=== PATIENT | female | born 1965 | race Caucasian/White ===

== ENCOUNTER 2021-05-25 08:13 | Outpatient (CLI) | payer OTHER, SELFPAY ==
[2021-05-25 08:39] LABS: Basophils Percent Auto 0.4 % (0.2-1.2); Eosinophils Absolute Auto 0.4 K/mm3 (0-0.3); Eosinophils Percent Auto 3.8 % (0-4.4); Hematocrit 41.6 % (37.0-47.0); Hemoglobin 13.3 g/dL (12.0-15.0); Immature Granulocyte Absolute 0.03 K/mm3 (0.00-0.031); Immature Granulocyte Percent A 0.3 % (0-0.5); Lymphocytes Absolute Auto 1.87 K/mm3 (0.9-3.2); Lymphocytes Percent Auto 19.2 % (18.3-44.2); Mean Corpuscular Hemoglobin 28.4 pg (26-34); Mean Corpuscular Volume 88.7 fl (80-100); Mean Platelet Volume 9.5 fl (7.4-10.4); Monocytes Absolute Auto 0.4 K/mm3 (0.1-0.6); Monocytes Percent Auto 4.3 % (2.6-8.5); Platelet Count Result 278 k/mm3 (150-375); Red Blood Count 4.69 M/mm3 (4.2-5.4); Red Cell Distribution Width 14.2 % (11.5-14.5); White Blood Count 9.7 K/mm3 (4.5-10.0)
[2021-05-25 08:54] LABS: Alanine Aminotransferase 25 U/L (4-35); Albumin Level 4.6 g/dL (3.5-5.1); Alkaline Phosphatase 55 U/L (38-126); Anion Gap 6 mmol/L (8-16); Aspartate Amino Transferase 30 U/L (14-36); Bilirubin,Total 0.4 mg/dL (0.2-1.3); Blood Urea Nitrogen 17 mg/dL (7-17); Calcium 8.8 mg/dL (8.4-10.2); Carbon Dioxide 31 mmol/L (22-30); Chloride 101 mmol/L (98-107); Cholesterol 191 mg/dL (0-200); Estimated Glomerular Filt Rate > 60; Glucose 125 mg/dL (65-110); HDL Direct 50 mg/dL; Potassium 4.9 mmol/L (3.4-5.0); Sodium 138 mmol/L (137-145); Triglycerides 144 mg/dL (<150)
[2021-05-25 09:03] LABS: Hemoglobin A1C 6.4 % (<5.7)
[2021-05-25 09:05] LABS: LDL Cholesterol Direct 124 mg/dL
[2021-05-25 09:49] LABS: Vitamin D 25 Hydroxy 38.1 ng/mL
== END 2021-05-25 08:14 | disposition home or self-care (01) ==
PROVIDERS: PCP Family Medicine; Referring Provider Nurse Practitioner Family; Visit Provider Family Medicine
DX: E55.9 Vitamin D deficiency, unspecified (principal); E11.9 Type 2 diabetes mellitus without complications; R53.83 Other fatigue; R42 Dizziness and giddiness
CPT/HCPCS: 36415; 80053; 80061; 82306; 83036; 84443; 85025

== ENCOUNTER 2021-06-17 14:50 | Outpatient (RCR) | payer OTHER, SELFPAY ==
--- NOTE | 2021-06-17 16:33 | PTOPEVAL ---
PHYSICAL THERAPY EVALUATION Thank you for referring Jacque Purvis to [facility].? Jacque was evaluated for the dx of BPPV. The patient is scheduled to be seen prn for up to a month if symptoms of dizziness return. Please review, sign, date and return this plan of care BENIGNO. I agree with and certify that the following plan of care is medically necessary. Referring Physician Date Attending Provider: NIDIA AaronPT Outpatient Evaluation Start: 06/17/21 15:04 Freq: Status: Active Protocol: Document 06/17/21 15:05 MLV (Rec: 06/17/21 16:10 MLV [id number]) Therapy Assessment Status Assessment Status Assessment Status Evaluation Evaluation Information Problem Diagnosis BPPV Onset February 2021 Cause no injury Additional Evaluation Detail The patient reports having 3 bouts of vertigo since February. The patient became nauseated and had bowel responses. The symptoms were severe and lasted 8 hours, leaving her bedridden at that time. The patient has not had an event for 4-6 weeks now and wonders if she needs the therapy. The patient has had small events of vertigo over the last 20 years and had been treated with BPPV exercises that worked then. Pain Assessment Timing of Pain Assessment Timing of Pain Assessment Assessment Self Report Self Report Pain Level 0 Pain Score Pain Score 0: Self Report Cervical and Lumbar ROM Cervical ROM Cervical ROM WNL Upper Extremity Range of Motion General Upper Extremity Range of Motion Reason Not Measured WFL/Left,WFL/Right Upper Extremity Muscle Strength Testing General Upper Extremity Strength Reason Not Measured WFL/Left,WFL/Right Special Test-Spine Cervical Spine Special Tests Vertebral Artery Test Negative Right,Negative Left Gait Assessment Gait Pattern Assessment Other Gait Observations mild ataxia related to DM neuropathy at LE's but I w/o a device with all normal activities. Vestibular Evaluation Vestibular Medical Information Past Vestibular History Back Pain,Medication Changes, Sinus/Allergy Issues Medical History Comments had stopped taking her zyrtec prior to onset of dizzy events . Started taking zyrtec aga
--- NOTE | 2021-07-04 13:58 | PCPTNOTE ---
PT called pt to check on vestibular symptoms-pt reports no dizziness but not doing much activity due to having COVID now. Plan to call pt in one week to check in on her again.
--- NOTE | 2021-07-11 13:05 | PCPTNOTE ---
Attempted to contact pt to check on status. pt unavailable. Left message.
--- NOTE | 2021-07-18 16:34 | PCPTNOTE ---
PHYSICAL THERAPY DISCHARGE Attending Provider: NIDIA Aaron Patient:Jacque Purvis Date of :1965 Patient has not returned for any further treatments since 06/17/2021, the patient has not called due to a return of symptoms, therefore she will be discharged at this time. Patient?s initial visit was on 06/17/2021 15:00 and she had a total of 1 visit. The goals have been met. Thank you for referring this patient to [facility]. Please review, sign, date and return this discharge summary BENIGNO. I have been updated about the patient's current status and I agree with discharge from the above service at this time. Referring Physician Date
== END 2021-09-01 11:42 | disposition home or self-care (01) ==
LOC: ANHPT 14:50
PROVIDERS: PCP Family Medicine; Visit Provider Nurse Practitioner Family
DX: R26.89 Other abnormalities of gait and mobility (principal); G43.809 Other migraine, not intractable, without status migrainosus; H81.09 Meniere's disease, unspecified ear; H91.92 Unspecified hearing loss, left ear; E11.40 Type 2 diabetes mellitus with diabetic neuropathy, unspecified
CPT/HCPCS: 97162

== ENCOUNTER 2021-06-24 14:22 | Outpatient (CLI) | payer OTHER, SELFPAY | END 2021-06-24 14:23 | disposition home or self-care (01) | LOC: ANHBWCAUD 14:24 | PROVIDERS: PCP Family Medicine; Visit Provider Otolaryngology | DX: G43.809 Other migraine, not intractable, without status migrainosus (principal); H81.09 Meniere's disease, unspecified ear; R26.89 Other abnormalities of gait and mobility; E11.40 Type 2 diabetes mellitus with diabetic neuropathy, unspecified; H90.A21 Sensorineural hearing loss, unilateral, right ear, with restricted hearing on the contralateral side; H90.A32 Mixed conductive and sensorineural hearing loss, unilateral, left ear with restricted hearing on the contralateral side | CPT/HCPCS: 92557; 92567 ==

== ENCOUNTER 2021-07-01 10:18 | Outpatient (RCR) | payer OTHER, SELFPAY | END 2021-07-19 09:31 | disposition home or self-care (01) | LOC: ANHBWCAUD 10:18 | PROVIDERS: PCP Nurse Practitioner Family; Visit Provider Otolaryngology | DX: Z46.1 Encounter for fitting and adjustment of hearing aid (principal) | CPT/HCPCS: 92593 ==

== ENCOUNTER 2021-11-11 07:15 | Outpatient (CLI) | payer BC, SELFPAY ==
[2021-11-11 08:00] LABS: Hemoglobin A1C 6.4 % (<5.7)
[2021-11-11 08:02] LABS: Alanine Aminotransferase 21 U/L (4-35); Albumin Level 4.4 g/dL (3.5-5.1); Alkaline Phosphatase 64 U/L (38-126); Anion Gap 6 mmol/L (8-16); Aspartate Amino Transferase 22 U/L (14-36); Bilirubin,Total 0.2 mg/dL (0.2-1.3); Blood Urea Nitrogen 19 mg/dL (7-17); Carbon Dioxide 29 mmol/L (22-30); Chloride 104 mmol/L (98-107); Estimated Glomerular Filt Rate > 60; Glucose 135 mg/dL (65-110); Potassium 4.3 mmol/L (3.4-5.0); Sodium 139 mmol/L (137-145)
[2021-11-11 08:06] LABS: Add Urine Microscopic? YES; Appearance Urine Clear (Clear); Bilirubin Urine Negative (Negative); Blood Urine Negative (Negative); Color Urine Yellow (Yellow); Glucose Urine UA Negative (Negative); Ketones Urine Trace mg/dL (Negative); Leukocyte Esterase Ur Negative LEU/UL (NEGATIVE); Mucus Urine Rare /lpf; Nitrate Urine Negative (Negative); Protein Urine Negative (Negative); RBC Urine 0-2 /hpf (0-2); Specific Grav Ur 1.013 (1.001-1.035); Squamous Epithelial Cell Urine Rare /hpf (Few); Urobilinogen Urine Negative mg/dL (<2.0); WBC Urine 0-3 /hpf (0-3)
== END 2021-11-11 07:16 | disposition home or self-care (01) ==
LOC: ANHLAB 07:16
PROVIDERS: PCP Family Medicine; Visit Provider Physician Assistant
DX: E11.40 Type 2 diabetes mellitus with diabetic neuropathy, unspecified (principal); R32 Unspecified urinary incontinence
CPT/HCPCS: 36415; 80053; 81001; 83036; 87086

== ENCOUNTER 2022-09-01 00:37 | Day surgery (SDC) | payer OTHER, SELFPAY ==
[2022-08-22 10:10] VITALS: BMI 49.2
[2022-09-01 09:06] VITALS: BP 162/76; PULSE 63; RESP 17; O2SAT 98; BMI 48.1
[2022-09-01] MEDS: LACTATED RINGERS 1,000 ML 150 ML IV CONT (09:17)
[2022-09-01 09:20] LABS: Glucose Point of Care 118 mg/dl (65-105)
--- NOTE | 2022-09-01 09:37 | PM.HPGS ---
History of Present Illness History of Present Illness Consent: Risks, benefits, and alternatives have been discussed and questions answered. Patient agrees to proceed with procedure. 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 She subsequently underwent ablation at [facility] and on her last endoscopy 2 years ago there Apparently was no visible evidence of residual Salazar's. Review of Systems Review of Systems: All systems reviewed & are unremarkable except as noted in HPI and below PMFSH Past Medical History Medical History Anxiety Barretts esophagus Controlled diabetes mellitus Diabetes mellitus with neuropathy Fibromyalgia GERD (gastroesophageal reflux disease) Insomnia Lumbar radiculopathy Obesity ALECIA (obstructive sleep apnea) Postmenopausal HRT (hormone replacement therapy) Surgical History Surgical History H/O gastric bypass History of ankle surgery History of carpal tunnel release of both wrists History of cholecystectomy History of reduction mammoplasty History of tubal ligation Family History Family History Mother Breast cancer Sibling Hypertension Social History Social History Smoking packs per day: 1 Smoking cigarettes per day: 20.0 Years smoked: 31 Smoking pack-years: 31.00 Smoking status: Former smoker Tobacco type: cigarettes Second hand tobacco smoke exposure: No Alcohol intake: current Substance use: never Substance use type: marijuana and prescription drug Gender identity (if verbalized by the patient): Female Sexual Orientation (if Verbalized by the Patient): Straight or Heterosexual Meds Home Medications and Allergies Home Medications Medication Instructions Recorded Confirmed Type cetirizine 10 mg tablet (Zyrtec) 10 mg PO DAILY PRN Allergy Symptoms 04/28/21 09/01/22 History cholecalciferol (vitamin D3) 50 50 mcg PO DAILY 04/28/21 09/01/22 History mcg (2,000 unit) capsule ondansetron HCl 4 mg tablet 4 mg PO Q6H PRN nausea and 05/23/21 09/01/22 Rx (Zofran) vomiting #30 tabs lorazepam 0.5 mg tablet (Ativan) 0.5 mg PO DAILY PRN anxiety #30 03/13/22 09/01/22 Rx tabs methocarbamol 500 mg tablet 500 mg PO QID PRN muscle spasm 30 04/24/22 09/01/22 Rx days #120 tabs diclofenac sodium 75 mg 75 mg PO BID #180 tabs 08/18/22 09/01/22 Rx tablet,delayed release dulaglutide 0.75 mg/0.5 mL 0.75 mg (0.5 mL) subcut WEEKLY #6 08/18/22 09/01/22 Rx subcutaneous pen injector mL (Trulicity) duloxetine 60 mg capsule,delayed 60 mg PO BID #180 caps 08/18/22 09/01/22 Rx release famotidine 40 mg tablet 40 mg PO QHS #90 tabs 08/18/22 09/01/22 Rx metformin 500 mg tablet 500 mg PO BID #180 tabs 08/18/22 09/01/22 Rx methylphenidate HCl 10 mg tablet 10 mg PO DAILY PRN ADHD in the 08/18/22 09/01/22 Rx afternoon #90 tabs methylphenidate HCl 18 mg 18 mg PO QAM #90 tabs 08/18/22 09/01/22 Rx tablet,extended release 24 hr (Concerta) omeprazole 40 mg capsule,delayed 40 mg PO DAILY #90 caps 08/18/22 09/01/22 Rx release pregabalin 150 mg capsule 150 mg PO BID #180 caps 08/18/22 09/01/22 Rx sertraline 100 mg tablet 100 mg PO DAILY #90 tabs 08/18/22 09/01/22 Rx sertraline 50 mg tablet 50 mg PO DAILY #90 tabs 08/18/22 09/01/22 Rx trazodone 100 mg tablet 100 mg PO QHS #90 tabs 08/18/22 09/01/22 Rx Allergies Allergy/AdvReac Type Severity Reaction Status Date / Time baclofen Allergy Mild Unknown Verified 09/01/22 09:05 cyclobenzaprine Allergy Mild Unknown Verified 09/01/22 09:05 [From Flexeril] metronidazole [From Flagyl] Allergy Mild Hives Verified 09/01/22 09:05 Vital Signs Vital Signs - 24 hr 0
--- NOTE | 2022-09-01 09:44 | WPDANESEPPF ---
Anes - Initial Pre Proc Eval Procedure: Operation Date: 09/01/22 10:30 Proposed Procedures p Esophagogastroduodenoscopy - Shaan Mirza MD Date/Time: 09/01/22 09:44 Surgeon: Shaan Mirza MD Pre Op Diagnosis: GERD, Salazar's Esophagus Patient Data Age: 56 Gender: F Height: 1.55 m Weight: 115.5 kg Last Vital Signs Pulse 63 09/01/22 09:06 Resp 17 09/01/22 09:06 BP 162/76 H 09/01/22 09:06 Pulse Ox 98 09/01/22 09:06 O2 Del Method Room Air 09/01/22 09:06 Allergies Allergy/AdvReac Type Severity Reaction Status Date / Time baclofen Allergy Mild Unknown Verified 09/01/22 09:05 cyclobenzaprine Allergy Mild Unknown Verified 09/01/22 09:05 [From Flexeril] metronidazole [From Flagyl] Allergy Mild Hives Verified 09/01/22 09:05 Home Medications Medication Instructions Recorded Confirmed Type cetirizine 10 mg tablet (Zyrtec) 10 mg PO DAILY PRN Allergy Symptoms 04/28/21 09/01/22 History cholecalciferol (vitamin D3) 50 50 mcg PO DAILY 04/28/21 09/01/22 History mcg (2,000 unit) capsule ondansetron HCl 4 mg tablet 4 mg PO Q6H PRN nausea and 05/23/21 09/01/22 Rx (Zofran) vomiting #30 tabs lorazepam 0.5 mg tablet (Ativan) 0.5 mg PO DAILY PRN anxiety #30 03/13/22 09/01/22 Rx tabs methocarbamol 500 mg tablet 500 mg PO QID PRN muscle spasm 30 04/24/22 09/01/22 Rx days #120 tabs diclofenac sodium 75 mg 75 mg PO BID #180 tabs 08/18/22 09/01/22 Rx tablet,delayed release dulaglutide 0.75 mg/0.5 mL 0.75 mg (0.5 mL) subcut WEEKLY #6 08/18/22 09/01/22 Rx subcutaneous pen injector mL (Trulicity) duloxetine 60 mg capsule,delayed 60 mg PO BID #180 caps 08/18/22 09/01/22 Rx release famotidine 40 mg tablet 40 mg PO QHS #90 tabs 08/18/22 09/01/22 Rx metformin 500 mg tablet 500 mg PO BID #180 tabs 08/18/22 09/01/22 Rx methylphenidate HCl 10 mg tablet 10 mg PO DAILY PRN ADHD in the 08/18/22 09/01/22 Rx afternoon #90 tabs methylphenidate HCl 18 mg 18 mg PO QAM #90 tabs 08/18/22 09/01/22 Rx tablet,extended release 24 hr (Concerta) omeprazole 40 mg capsule,delayed 40 mg PO DAILY #90 caps 08/18/22 09/01/22 Rx release pregabalin 150 mg capsule 150 mg PO BID #180 caps 08/18/22 09/01/22 Rx sertraline 100 mg tablet 100 mg PO DAILY #90 tabs 08/18/22 09/01/22 Rx sertraline 50 mg tablet 50 mg PO DAILY #90 tabs 08/18/22 09/01/22 Rx trazodone 100 mg tablet 100 mg PO QHS #90 tabs 08/18/22 09/01/22 Rx Laboratory Tests 09/01/22 09:12 POC Capillary Glucose 118 mg/dl H mg/dl (65-105) Patient hx anesthesia problems: none Family hx anesthesia problems: none Results Review: All pre-operative results and documents have been reviewed as part of the pre-operative evaluation. [facility] Past Medical History Medical History Anxiety Barretts esophagus Controlled diabetes mellitus Diabetes mellitus with neuropathy Fibromyalgia GERD (gastroesophageal reflux disease) Insomnia Lumbar radiculopathy Obesity ALECIA (obstructive sleep apnea) Postmenopausal HRT (hormone replacement therapy) Surgical History Surgical History H/O gastric bypass History of ankle surgery History of carpal tunnel release of both wrists History of cholecystectomy History of reduction mammoplasty History of tubal ligation Family History Family History Mother Breast cancer Sibling Hypertension Social History Social History Smoking packs per day: 1 Smoking cigarettes per day: 20.0 Years smoked: 31 Smoking pack-years: 31.00 Smoking status: Former smoker Tobacco type: cigarettes Second hand tobacco smoke exposure: No Alcohol intake: current Substance use: never Substance use type: marijuana and prescription drug Gender identity (if verbalized by the patient): F
[2022-09-01] MEDS: BENZOCAINE (*SP) 60 ML SPRAY CAN (HURRICAINE) 1 SPRAY MUCOUS MEM (10:22)
[2022-09-01 10:30] VITALS: BP 108/56; PULSE 58; RESP 16; O2SAT 93
[2022-09-01 10:40] VITALS: BP 113/57; PULSE 59; RESP 20; O2SAT 96
[2022-09-01 10:50] VITALS: BP 127/54; PULSE 58; RESP 18; O2SAT 100
== END 2022-09-01 11:00 | disposition home or self-care (01) ==
PROVIDERS: PCP Family Medicine; Visit Provider Internal Medicine Gastroenterology
PROC: 0DJ08ZZ Inspection of Upper Intestinal Tract, Via Natural or Artificial Opening Endoscopic (ICD-10-PCS; CPT 43235; principal; 2022-09-01 10:30)
DX: Z09 Encounter for follow-up examination after completed treatment for conditions other than malignant neoplasm (principal); K21.9 Gastro-esophageal reflux disease without esophagitis; Z87.19 Personal history of other diseases of the digestive system; Z98.84 Bariatric surgery status; E11.40 Type 2 diabetes mellitus with diabetic neuropathy, unspecified; G47.33 Obstructive sleep apnea (adult) (pediatric); M79.7 Fibromyalgia; F41.9 Anxiety disorder, unspecified; E66.01 Morbid (severe) obesity due to excess calories; Z68.42 Body mass index [BMI] 45.0-49.9, adult; Z79.890 Hormone replacement therapy; Z87.891 Personal history of nicotine dependence; Z79.899 Other long term (current) drug therapy; Z79.84 Long term (current) use of oral hypoglycemic drugs
CPT/HCPCS: 43235; 82948; 88305; J2704; J7120

== ENCOUNTER 2022-11-08 17:17 | Outpatient (CLI) | payer OTHER, SELFPAY ==
--- NOTE | ~2022-11-08 | XR_ITS ---
AP view of the pelvis and AP and lateral views of the bilateral hips Clinical history: Pain Findings: No acute fracture or dislocation is seen. Osseous alignment is anatomic. Bilateral hip and SI joint spaces are preserved. Soft tissues are unremarkable. Impression: No significant abnormality is seen. Reviewed, dictated and finalized at location . Impression: No significant abnormality is seen.
--- NOTE | ~2022-11-08 | XR_ITS ---
EXAM: XR knee RT 3V, XR knee LT 3V DATE: 11/08/2022 17:51 (accession [id number]), 11/08/2022 17:52 (accession [id number]) HISTORY: M25.561 Pain in right knee . COMPARISON: None available. FINDINGS: Normal mineralization. No fracture or dislocation. No lytic or blastic lesion. Mild bilate ral medial joint space narrowing. Mild tricompartmental osteophytosis. Bilateral quadriceps enthesopa thy. No erosion or periosteal change. Soft tissues within normal limits. IMPRESSION: Mild tricompartmental osteoarthritis of the knees. Reviewed, dictated and finalized at location K. IMPRESSION: Mild tricompartmental osteoarthritis of the knees.
== END 2022-11-08 17:18 ==
PROVIDERS: PCP Physician Assistant; Visit Provider Physician Assistant
DX: M25.551 Pain in right hip (principal); M25.552 Pain in left hip; M17.0 Bilateral primary osteoarthritis of knee
CPT/HCPCS: 73521; 73562

== ENCOUNTER → 2023-01-01 10:37 | Outpatient (CLI) | payer OTHER, SELFPAY ==
--- NOTE | ~2023-01-01 | US_ITS ---
EXAMINATION:US venous doppler LE RT INDICATION:Right lower extremity edema TECHNIQUE: Multiple grayscale, color flow and Doppler images of the right lower extremity deep venous systems were obtained and reviewed. COMPARISON:No prior studies for comparison. FINDINGS: The common femoral, superficial femoral and popliteal veins demonstrate normal respiratory variation, augmentation and compressibility. Color flow is also seen within the posterior tibial, pe roneal, greater saphenous and profunda veins. IMPRESSION: 1: No lower extremity deep venous thrombosis. Reviewed, dictated and finalized at location B.
== END ==
PROVIDERS: PCP Family Medicine; Visit Provider Physician Assistant
DX: M79.604 Pain in right leg (principal); R60.0 Localized edema
CPT/HCPCS: 93971

== ENCOUNTER 2023-01-08 07:49 | Outpatient (CLI) | payer OTHER, SELFPAY ==
[2023-01-08 08:48] LABS: SARS-CoV-2 RNA PCR Positive (Negative)
== END 2023-01-08 07:50 | disposition home or self-care (01) ==
LOC: ANHLAB 07:50
PROVIDERS: PCP Family Medicine; Visit Provider Physician Assistant
DX: U07.1 COVID-19 (principal)
CPT/HCPCS: 87635; U0005